=== PATIENT | male | born 1950 | race Caucasian/White ===

== ENCOUNTER 2022-06-15 06:54 | Day surgery (SDC) | payer OTHER ==
[~2022-06-15] VITALS: Ht 172.7 cm; Wt 83.5 kg
[2022-06-15] MEDS ORDERED: fentaNYL citrate 0.05 MG/ML VIAL ONE (09:40)
[2022-06-15] MEDS ORDERED: MIDAZOLAM 2 MG/2 ML VIAL ONE (09:40)
[2022-06-15] MEDS ORDERED: LIDOCAINE 2% 100 MG/5 ML UJET TP ONE (09:40)
[2022-06-15] MEDS ORDERED: fentaNYL citrate 0.05 MG/ML VIAL IVP ONE (10:25)
[2022-06-15] MEDS ORDERED: MIDAZOLAM 2 MG/2 ML VIAL IVP ONE (10:25)
== END 2022-06-15 11:35 | disposition home or self-care (01) ==
LOC: MOR 06:54 → MMU 07:00 → MOR 11:35
PROVIDERS: ATTEND Surgery
DX: K62.5 Hemorrhage of anus and rectum (principal); D12.0 Benign neoplasm of cecum; Z88.8 Allergy status to other drugs, medicaments and biological substances
CPT/HCPCS: 45380; 88305; J2250; J3010

== ENCOUNTER 2022-10-19 06:19 | Day surgery (SDC) | payer OTHER, BC ==
[2022-10-17 08:08] LABS: BASOPHILS % (AUTO) 0.6 % (0.0-2.0); EOSINOPHILS # (AUTO) 0.5 K/uL (0-0.4); EOSINOPHILS % (AUTO) 7.4 % (0.0-4.0); HEMATOCRIT 50.3 % (36-52); HEMOGLOBIN 17.1 g/dL (12.0-18.0); LYMPHOCYTES # (AUTO) 1.4 K/uL (2.0-11.5); LYMPHOCYTES % (AUTO) 22.5 % (20.5-51.1); MEAN CORPUSCULAR HEMOGLOBIN 29 pg (27-31); MEAN CORPUSCULAR HGB CONC 34 g/dL (33-37); MEAN CORPUSCULAR VOLUME 85.9 fL (80-94); MONOCYTES # (AUTO) 0.5 K/uL (0.8-1.0); MONOCYTES % (AUTO) 7.7 % (1.7-9.3); NEUTROPHILS # (AUTO) 3.9 K/uL (1.8-7.7); NEUTROPHILS % (AUTO) 61.8 % (42.2-75.2); PLATELET COUNT (AUTO) 210 K/uL (140-450); RED BLOOD CELL COUNT(AUTO) 5.85 MIL/uL (4.20-6.10); RED CELL DISTRIBUTION WIDTH 13.4 % (11.6-13.7); WHITE BLOOD COUNT (AUTO) 6.3 K/uL (4.8-10.8)
[2022-10-17 08:14] LABS: ANION GAP 13.4 (8-16); CALCIUM 8.4 mg/dL (8.5-10.1); CHLORIDE 105 mmol/L (98-107); CREATININE 1.6 mg/dL (0.6-1.3); GLUCOSE 99 mg/dL (74-106); POTASSIUM 4.4 mmol/L (3.5-5.1); SODIUM SERUM 139 mmol/L (136-145); UREA NITROGEN, BLOOD 23 mg/dL (7-18)
[~2022-10-19] VITALS: Ht 170.2 cm; Wt 79.4 kg
[2022-10-19] MEDS ORDERED: LIDOCAINE/EPI MPF 1%1:200000 30 ML VIAL INJ ONE (08:06)
[2022-10-19] MEDS ORDERED: BUPIVACAINE-MPF 0.25% 30 ML VIAL INJ ONE (08:06)
[2022-10-19] MEDS ORDERED: DESFLURANE 240 ML BTL INH ONE (09:10)
[2022-10-19] MEDS ORDERED: fentaNYL citrate 0.05 MG/ML VIAL ONE (09:18)
[2022-10-19] MEDS ORDERED: DEXAMETHASONE 4 MG/ML VIAL ONE (09:18)
[2022-10-19] MEDS ORDERED: ONDANSETRON 4 MG/2 ML VIAL ONE (09:20)
[2022-10-19] MEDS ORDERED: ROCURONIUM 50 MG/5 ML VIAL IV ONE (09:20)
[2022-10-19] MEDS ORDERED: PROPOFOL 200 MG/20 ML VIAL IV ONE (09:20)
[2022-10-19] MEDS ORDERED: SUCCINYLCHOLINE CHLORIDE 200 MG/10 ML VIAL IVP ONE (09:20)
[2022-10-19] MEDS ORDERED: ceFAZolin 1,000 MG VIAL ONE ×2 (09:26)
[2022-10-19] MEDS ORDERED: GLYCOPYRROLATE 0.2 MG/ML VIAL ONE (09:30)
[2022-10-19] MEDS ORDERED: ACETAMINOPHEN 100 ML IV ONE (09:32)
[2022-10-19] MEDS ORDERED: SUGAMMADEX SODIUM 200 MG/2 ML VIAL IV ONE (09:38)
[2022-10-19] MEDS ORDERED: ONDANSETRON 4 MG/2 ML VIAL IVP PRN (09:55)
[2022-10-19] MEDS ORDERED: HYDROmorphone PFS 2 MG/ML SYR ONE (10:12)
[2022-10-19] MEDS: HYDROmorphone 1 MG/ML AMP IVP PRN ×3 (10:15→10:35)
== END 2022-10-19 11:20 | disposition home or self-care (01) ==
LOC: MMU 06:19 → MDS 06:19
PROVIDERS: ATTEND Surgery
DX: D12.1 Benign neoplasm of appendix (principal); Z88.1 Allergy status to other antibiotic agents; Z88.2 Allergy status to sulfonamides; Z98.890 Other specified postprocedural states
CPT/HCPCS: 36415; 44970; 71045; 80048; 85025; 88304; J0330; J0690; J1100; J1170; J2001; J2405; J2704; J3010; J3490